=== PATIENT | female | born 1980 | race Caucasian/White ===

== ENCOUNTER → 2016-11-22 | Outpatient (CLI) | payer OTHER ==
--- NOTE | 2016-11-22 17:16 | US ---
EXAMINATION TYPE: US pelvic complete DATE OF EXAM: 11/22/2016 4:53 PM COMPARISON: CT and US CLINICAL HISTORY: N94.9 LT Adnexal Mass, Patient had normal ultrasound on 10-08, she had a CT on 12-21 which showed an adnexal mass measuring 5.2cm. TECHNIQUE: Transabdominal (TA) Date of LMP: 10/27/2016 EXAM MEASUREMENTS: Uterus: 7.8 x 4.1 x 5.3cm Endometrial Stripe: 1.4 cm Right Ovary: 2.1 x 1.5 x 2.0 cm Left Ovary: 2.5 x 1.6 x 1.6 cm TECHNOLOGIST IMPRESSION: wnl 1. Uterus: Anteverted 2. Endometrium: wnl 3. Right Ovary: wnl 4. Left Ovary: wnl 5. Bilateral Adnexa: wnl 6. Posterior cul-de-sac: wnl IMPRESSION: Normal transabdominal pelvic sonogram. Endometrium is upper limit of normal thickness. No adnexal mass seen.
== END | disposition home or self-care (01) ==
LOC: RADUSMAIN 16:36
PROVIDERS: ATTEND Obstetrics & Gynecology
DX: N83.8 Other noninflammatory disorders of ovary, fallopian tube and broad ligament (principal)
CPT/HCPCS: 76856

== ENCOUNTER → 2017-03-15 | Outpatient (CLI) | payer OTHER ==
[2017-03-15 12:19] LABS: Basophils % (A) 1 %; CH 27.8; CHCM 33.2; Eosinophils # (A) 0.1 k/uL (0-0.7); Eosinophils % (A) 2 %; HCT 40.7 % (34.0-46.0); HDW 2.53; HGB 13.3 gm/dL (11.4-16.0); Luc % (Auto) 2; Lymphocytes # (A) 1.6 k/uL (1.0-4.8); Lymphocytes % (A) 33 %; MCH 27.4 pg (25.0-35.0); MCHC 32.6 g/dL (31.0-37.0); Mean Platelet Volume 6.9; Monocytes # (A) 0.3 k/uL (0-1.0); Monocytes % (A) 6 %; Neutrophils # (A) 2.7 k/uL (1.3-7.7); Neutrophils % (A) 57 %; RBC 4.85 m/uL (3.80-5.40); WBC 4.8 k/uL (3.8-10.6); WBC (Perox) 5.06
== END | disposition home or self-care (01) ==
LOC: LABPAT 11:45
PROVIDERS: ATTEND Obstetrics & Gynecology
DX: Z01.812 Encounter for preprocedural laboratory examination (principal)
CPT/HCPCS: 36415; 85025

== ENCOUNTER 2017-03-22 08:32 | Day surgery (SDC) | payer OTHER ==
[2017-03-17 15:07] VITALS: BMI 24.5
--- NOTE | 2017-03-21 15:45 | P.HPOB ---
History of Present Illness H&P Date: 03/21/17 Chief Complaint: Menorrhagia 37 year old presents for D&C hysteroscopy and endometrial ablation with NovaSure. Review of Systems All systems: negative Constitutional: Denies chills, Denies fever Eyes: denies blurred vision, denies pain Ears, nose, mouth and throat: Denies headache, Denies sore throat Cardiovascular: Denies chest pain, Denies shortness of breath Respiratory: Denies cough Gastrointestinal: Denies abdominal pain, Denies diarrhea, Denies nausea, Denies vomiting Genitourinary: Denies dysuria, Denies hematuria Musculoskeletal: Denies myalgias Integumentary: Denies pruritus, Denies rash Neurological: Denies numbness, Denies weakness Psychiatric: Denies anxiety, Denies depression Endocrine: Denies fatigue, Denies weight change Past Medical History Past Medical History: Asthma Additional Past Medical History / Comment(s): IRREGULAR MENSES, MIGRAINES, excercise induced asthma, past hx of htn, bruised rt foot History of Any Multi-Drug Resistant Organisms: None Reported Past Surgical History: Appendectomy, Section, Tubal Ligation Additional Past Surgical History / Comment(s): 3 LAPROSCOPIC SX FOR ovarian cysts, TUBE IN EAR Past Anesthesia/Blood Transfusion Reactions: No Reported Reaction Additional Past Anesthesia/Blood Transfusion Reaction / Comment(s): STATES HAS "PANIC ATTACK IF MASK IS USED" HARD TIME WAKING UP Past Psychological History: Anxiety, Depression Smoking Status: Never smoker Past Alcohol Use History: None Reported Past Drug Use History: None Reported - Past Family History Mother Family Medical History: No Reported History Medications and Allergies Home Medications Medication Instructions Recorded Confirmed Type Albuterol Inhaler [Ventolin Hfa 1 - 2 puff INHALATION Q6HR PRN 03/17/17 History Inhaler] Amitriptyline HCl [Elavil] 25 mg PO HS 03/17/17 03/17/17 History FLUoxetine HCL [PROzac] 40 mg PO QAM 03/17/17 03/17/17 History Ondansetron [Zofran] 4 mg PO Q8HR PRN 03/17/17 03/17/17 History clonazePAM [KlonoPIN] 0.25 mg PO QAM 03/17/17 03/17/17 History clonazePAM [KlonoPIN] 0.5 mg PO HS 03/17/17 03/17/17 History Allergies Allergy/AdvReac Type Severity Reaction Status Date / Time latex AdvReac Rash/Hives Verified 03/17/17 14:56 Exam Osteopathic Statement: *. No significant issues noted on an osteopathic structural exam other than those noted in the History and Physical/Consult. HEart: RRR Lungs: CTAB Abdomen: soft, nontender Extremeties: neg isabella's Assessment and Plan (1) Menorrhagia Status: Acute Plan: 1. D&C hysteroscopy and endometrial ablation with NovaSUre
[~2017-03-22 08:32] MED LIST: DEXAMETHASONE SOD PHOSPHATE 10 MG/ML 1 ML VIAL IV ONE; HYDROmorphone 1 MG/ML 1 ML SYRINGE IVP PRN; LACTATED RINGERS 1,000 ML IV SCH; MIDAZOLAM 2 MG/2 ML VIAL IV PRN; ONDANSETRON 4 MG/2 ML VIAL IVP ONE; Pre Op ABX Message 1 EACH MISC MISCELLANE ONE; SCOPOLAMINE 1.5MG/72HR PATCH TRANSDERM ONE
[2017-03-22 08:54] VITALS: RESP 16
[2017-03-22] MEDS ORDERED: LIDOCAINE 1% INJ 10MG/ML (20 ML MDV) ONE (09:38)
[2017-03-22] MEDS ORDERED: MIDAZOLAM 2 MG/2 ML VIAL ONE (09:38)
[2017-03-22] MEDS ORDERED: fentaNYL (PF) 50 MCG/ML 2 ML AMP ONE (09:38)
[2017-03-22] MEDS ORDERED: KETOROLAC 30 MG/ML 1 ML VIAL ONE (09:38)
[2017-03-22] MEDS ORDERED: PROPOFOL 10 MG/ML 20 ML VIAL IV ONE (09:38)
--- NOTE | 2017-03-22 10:01 | P.OP ---
Date of Procedure: 03/22/17 Preoperative Diagnosis: 1. Menorrhagia Postoperative Diagnosis: 1. Menorrhagia Procedure(s) Performed: D&C hysteroscopy Implants: Anesthesia: MAC Surgeon: Raysa Reyes Estimated Blood Loss (ml): 3 IV fluids (ml): 400 Urine output (ml): 20 Pathology: other (Endometrial curettings) Condition: stable Disposition: PACU Indications for Procedure: Operative Findings: Stenotic inner os of the cervix resulting in uterine perforation, grade 1 uterine descent Description of Procedure: Patient is in the operating room where general anesthesia was obtained without difficulty. She is prepped and draped in normal sterile fashion dorsal lithotomy position and legs placed in candycane stirrups. Bladder was drained of all urine. Weighted speculum placed in vagina the anterior lip the cervix was grasped with single-tooth tenaculum. Uterus was sounded but only went to 4 cm. The cervix was dilated to allow the hysteroscope to pass. Hysteroscopy was performed and was found that it was just to the internal os of the cervix and not always through. Attempting to dilate further caused a perforation of the uterus. This was confirmed with hysteroscope. Sharp curet was gently used to obtain some endocervical, possible endometrial curettings. All instruments were removed from the vagina and the NovaSure was abandoned. Patient tolerated the procedure well, sponge and instrument counts correct 2 and she was taken to recovery room in condition.
[2017-03-22 10:51] VITALS: TEMP 97
[2017-03-22 11:43] VITALS: BP 142/96; PULSE 68
== END 2017-03-22 11:54 | disposition home or self-care (01) ==
LOC: OR 08:32
PROVIDERS: ATTEND Obstetrics & Gynecology
DX: N92.0 Excessive and frequent menstruation with regular cycle (principal); J45.909 Unspecified asthma, uncomplicated; F32.9 Major depressive disorder, single episode, unspecified; Z79.899 Other long term (current) drug therapy; Z91.040 Latex allergy status; F41.9 Anxiety disorder, unspecified
CPT/HCPCS: 81025; 88305; 58558; J2250; J1100; J2405; J2001; J3010; J1885; J1170; J2704

== ENCOUNTER → 2017-04-30 | Outpatient (CLI) | payer OTHER ==
[2017-04-30 11:03] LABS: Basophils % (A) 1 %; CHCM 33.3; Eosinophils # (A) 0.1 k/uL (0-0.7); Eosinophils % (A) 2 %; HDW 2.56; HGB 14.2 gm/dL (11.4-16.0); Luc # (Auto) 0.07; Luc % (Auto) 1; Lymphocytes # (A) 1.6 k/uL (1.0-4.8); Lymphocytes % (A) 30 %; MCH 28.3 pg (25.0-35.0); MCHC 34.8 g/dL (31.0-37.0); MCV 81.3 fL (80.0-100.0); Mean Platelet Volume 7.2; Monocytes # (A) 0.2 k/uL (0-1.0); Monocytes % (A) 4 %; Neutrophils # (A) 3.3 k/uL (1.3-7.7); Neutrophils % (A) 62 %; RBC 5.04 m/uL (3.80-5.40); RDW 12.8 % (11.5-15.5); WBC 5.3 k/uL (3.8-10.6); WBC (Perox) 5.74
[2017-04-30 11:20] LABS: Anion Gap 10 mmol/L; Blood Urea Nitrogen 7 mg/dL (7-17); Calcium 8.8 mg/dL (8.4-10.2); Carbon Dioxide 23 mmol/L (22-30); Chloride 107 mmol/L (98-107); Glucose 110 mg/dL (74-99); Non-African American GFR(MDRD) >60 (>60 ml/min/1.73 sqM); Sodium 140 mmol/L (137-145)
== END ==
LOC: LABPAT 10:45
PROVIDERS: ATTEND Obstetrics & Gynecology
DX: Z01.812 Encounter for preprocedural laboratory examination (principal)
CPT/HCPCS: 80048; 85025

== ENCOUNTER 2017-05-09 06:06 | Observation (INO) | payer OTHER ==
[2017-04-29 17:41] VITALS: BMI 24.5
--- NOTE | 2017-05-08 11:19 | P.HPOB ---
History of Present Illness H&P Date: 05/08/17 Chief Complaint: Menorrhagia 37-year-old presents for total laparoscopic hysterectomy with da Jr due to menorrhagia. Attempted to do an ablation on her but perforated her uterus due to cervical stenosis. Review of Systems All systems: negative Constitutional: Denies chills, Denies fever Eyes: denies blurred vision, denies pain Ears, nose, mouth and throat: Denies headache, Denies sore throat Cardiovascular: Denies chest pain, Denies shortness of breath Respiratory: Denies cough Gastrointestinal: Denies abdominal pain, Denies diarrhea, Denies nausea, Denies vomiting Genitourinary: Denies dysuria, Denies hematuria Musculoskeletal: Denies myalgias Integumentary: Denies pruritus, Denies rash Neurological: Denies numbness, Denies weakness Psychiatric: Denies anxiety, Denies depression Endocrine: Denies fatigue, Denies weight change Past Medical History Past Medical History: Asthma, Hypertension Additional Past Medical History / Comment(s): MIGRAINES, IBS. HEAVY FREQ MENSES , ABD CRAMPING & BLOATING. History of Any Multi-Drug Resistant Organisms: None Reported Past Surgical History: Appendectomy, Section, Tubal Ligation Additional Past Surgical History / Comment(s): LAROSCOPIC Ovarian Cysts REMOVAL. D&C, HYSTEROSCOPY 03/22/17. Past Anesthesia/Blood Transfusion Reactions: Previous Problems w/ Anesthesia Additional Past Anesthesia/Blood Transfusion Reaction / Comment(s): OCC TAKES LONGER TO AWAKEN FROM ANESTHESIA. Past Psychological History: Anxiety Smoking Status: Never smoker Past Alcohol Use History: None Reported Past Drug Use History: None Reported - Past Family History Mother Family Medical History: No Reported History Medications and Allergies Home Medications Medication Instructions Recorded Confirmed Type Albuterol Inhaler [Ventolin Hfa 1 - 2 puff INHALATION Q6HR PRN 03/17/17 History Inhaler] Amitriptyline HCl [Elavil] 25 mg PO HS 03/17/17 04/29/17 History FLUoxetine HCL [PROzac] 40 mg PO QAM 03/17/17 04/29/17 History Ondansetron [Zofran] 4 mg PO Q8HR PRN 03/17/17 04/29/17 History clonazePAM [KlonoPIN] 0.25 mg PO QAM 03/17/17 04/29/17 History clonazePAM [KlonoPIN] 0.5 mg PO HS 03/17/17 04/29/17 History Allergies Allergy/AdvReac Type Severity Reaction Status Date / Time latex AdvReac Rash/Hives Verified 04/29/17 17:16 Exam Osteopathic Statement: *. No significant issues noted on an osteopathic structural exam other than those noted in the History and Physical/Consult. Heart: Regular rate and rhythm Lungs: Clear to auscultation bilaterally Abdomen: Soft, nontender Extremities: Negative Homans sign Assessment and Plan (1) Menorrhagia Status: Acute Plan: 1. Total laparoscopic hysterectomy with da Jr
[~2017-05-09 06:06] MED LIST changes: -HYDROmorphone 1 MG/ML 1 ML SYRINGE IVP PRN; -LACTATED RINGERS 1,000 ML IV SCH; -Pre Op ABX Message 1 EACH MISC MISCELLANE ONE; +ceFAZolin 2 GM in SODIUM CHLORIDE 0.9% 100 ML IVPB ONE
[2017-05-09] MEDS: LACTATED RINGERS 1,000 ML IV SCH ×3 (06:30→22:42)
[2017-05-09] MEDS ORDERED: LIDOCAINE 1% 20 ML VIAL (10MG/ML) FOR IV START SQ ONE (06:31)
[2017-05-09] MEDS ORDERED: ROCURONIUM BROMIDE 10 MG/ML 10 ML VIAL IV ONE (07:15)
[2017-05-09] MEDS ORDERED: PROPOFOL 10 MG/ML 20 ML VIAL IV ONE (07:15)
[2017-05-09] MEDS ORDERED: NEOSTIGMINE 1 MG/ML 10 ML VIAL ONE (07:15)
[2017-05-09] MEDS ORDERED: GLYCOPYRROLATE 0.2 MG/ML 2 ML VIAL ONE (07:15)
[2017-05-09] MEDS ORDERED: MIDAZOLAM 2 MG/2 ML VIAL ONE (07:15)
[2017-05-09] MEDS ORDERED: LIDOCAINE 1% INJ 10MG/ML (20 ML MDV) ONE (07:15)
[2017-05-09] MEDS ORDERED: fentaNYL (PF) 50 MCG/ML 2 ML AMP ONE (07:15)
[2017-05-09] MEDS ORDERED: ePHEDrine 50 MG/ML 1 ML AMP ONE (07:15)
[2017-05-09] MEDS ORDERED: SUCCINYLCHOLINE CHLORIDE 100 MG/5 ML SYR IV ONE (07:15)
[2017-05-09] MEDS ORDERED: BUPIVACAINE (PF) 0.25% 30 ML VIAL SQ ONE (07:39)
--- NOTE | 2017-05-09 08:28 | P.OP ---
Date of Procedure: 05/09/17 Preoperative Diagnosis: 1. Menorrhagia Postoperative Diagnosis: 1. Menorrhagia Procedure(s) Performed: Total laparoscopic hysterectomy with da Jr Implants: Anesthesia: ERNIEA Surgeon: Raysa Reyes Estimated Blood Loss (ml): 10 IV fluids (ml): 400 Urine output (ml): 200 Pathology: other (Uterus and cervix) Condition: stable Disposition: PACU Indications for Procedure: Operative Findings: Normal uterus and ovaries, evidence of history of tubal ligation Description of Procedure: Patient taken the operating room where general anesthesia was obtained without difficulty. She is prepped and draped in normal sterile fashion dorsal lithotomy position, legs placed in the Robinson stirrups. Weighted speculum placed in the vagina and the anterior lip the cervix was grasped with single- tooth tenaculum. The uterus sounded to 8 cm and the cervix diameter was 3 cm. The appropriate manipulator tip and ring were placed on the Olivia manipulator. The Olivia manipulator was then placed in the uterus. Bauer catheter was also placed. Attention was then turned to the abdomen and gloves were changed. A 5 mm supraumbilical incision was made the scalpel and a 5 mm optical trocar was placed under direct visualization. 10 cm to the right of this and 2 cm down a 5 mm incision was made and 8 mm da Jr port was placed under direct visualization. Same measurements on the opposite side of the patient's abdomen , the 5 mm incision was made and 8 mm da Jr port was placed under direct visualization. In the left upper quadrant a 10 mm incision was made and a 10 mm optical trocar was placed under direct visualization. The 5 mm optical trocar was then replaced with the 8 mm da Jr camera port. The robot was docked on patient's right side. The camera was introduced and then the monopolar curved scissor and [place] bipolar placed under direct visualization. I broke scrub and went to the physician console. The left uterosacral ligament was cauterized with the [place] bipolar and cut with monopolar curved scissors. The left round ligament was cauterized with the [place] bipolar and cut with monopolar curved scissors. The posterior leaf of the broad ligament was taken down using the monopolar curved scissors. Anterior leaf of the broad ligament was then taken down using the monopolar curved scissors. The uterine artery was cauterized with the [place] bipolar and cut with monopolar curved scissors. The bladder flap was then started using the monopolar curved scissors. Attention was then turned to the right side of the patient's anatomy and the right uterosacral ligament was cauterized with the [place] bipolar and cut with monopolar curved scissors. The right round ligament was cauterized with the [place] bipolar and cut with monopolar curved scissors. Posterior leaf of the broad ligament was taken down using the monopolar curved scissors and the anterior leaf was taken down using the monopolar curved scissors. The uterine artery was cauterized the Maryland bipolar cut with monopolar curved scissors. The bladder flap was then finished on this side. Anterior colpotomy was made using the monopolar curved scissors. The rest of the uterus was from the vaginal cuff by following the ring around with the monopolar curved scissors through the uterosacral ligaments back to the anterior portion. Once the uterus and cervix were amputated they were pulled through the vaginal cuff. Hemostasis was assured. The instruments were changed for the Cardier forcep and the zach suture cut. The vaginal cuff was then closed using O stratafix barbed suture in a running fashion. Hemostasis was again assured and the pelvis was irrigated. All instruments were removed from the abdomen and the robot was undocked. I scrubbed back in to perform a cystoscopy. There were jets from both ureteral orifices. The abdominal incisions were closed with 4-0 Vicryl in a subcuticular fashion. Patient tolerated the procedure well, sponge and instrument counts correct 2 and she was taken to recovery room in stable condition condition
[2017-05-09] MEDS: HYDROmorphone 1 MG/ML 1 ML SYRINGE IVP PRN ×3 (09:25→09:49)
[2017-05-09] MEDS ORDERED: Acetaminophen-Codeine 300-30mg TAB PO PRN ×2 (10:30)
[2017-05-09] MEDS ORDERED: diphenhydrAMINE 50 MG/ML 1 ML VIAL IVP PRN (10:30)
[2017-05-09] MEDS ORDERED: SIMETHICONE 80 MG CHEWABLE PO PRN (10:30)
[2017-05-09] MEDS ORDERED: ALBUTEROL INHALER 60 PUFF/8 GM INHALER INHALATION PRN (10:30)
[2017-05-09] MEDS ORDERED: METOCLOPRAMIDE 5 MG/ML 2 ML VIAL IVP PRN (10:30)
[2017-05-09] MEDS ORDERED: IBUPROFEN 600 MG TAB PO PRN (10:30)
[2017-05-09] MEDS ORDERED: ONDANSETRON 4 MG/2 ML VIAL IVP PRN (10:30)
[2017-05-09] MEDS: FLUoxetine HCL 20 MG CAP PO SCH (13:29)
[2017-05-09] MEDS: SENNOSIDES-DOCUSATE SODIUM 1 EACH TAB PO SCH ×2 (13:30→21:12)
[2017-05-09] MEDS: KETOROLAC 30 MG/ML 1 ML VIAL IVP PRN ×2 (13:33→19:36)
[2017-05-09] MEDS: clonazePAM 0.5 MG TAB PO SCH (13:35)
[2017-05-09] MEDS ORDERED: ALBUTEROL NEBULIZED 2.5 MG/3 ML INHALATION PRN (15:03)
[2017-05-09] MEDS ORDERED: AMITRIPTYLINE HCL 25 MG TAB PO SCH (21:00)
[2017-05-09] MEDS ORDERED: clonazePAM 0.5 MG TAB PO SCH (21:00)
[2017-05-10 06:52] LABS: Basophils % (A) 0 %; CH 27.1; Eosinophils # (A) 0.3 k/uL (0-0.7); Eosinophils % (A) 3 %; HCT 35.2 % (34.0-46.0); HDW 2.45; HGB 11.8 gm/dL (11.4-16.0); Luc # (Auto) 0.11; Luc % (Auto) 1; Lymphocytes # (A) 1.6 k/uL (1.0-4.8); Lymphocytes % (A) 20 %; MCH 27.7 pg (25.0-35.0); MCHC 33.6 g/dL (31.0-37.0); MCV 82.4 fL (80.0-100.0); Mean Platelet Volume 7.1; Monocytes # (A) 0.5 k/uL (0-1.0); Monocytes % (A) 6 %; Neutrophils # (A) 5.3 k/uL (1.3-7.7); Neutrophils % (A) 69 %; RBC 4.27 m/uL (3.80-5.40); RDW 12.5 % (11.5-15.5); WBC 7.7 k/uL (3.8-10.6)
[2017-05-10 08:17] VITALS: BP 133/80; PULSE 64; RESP 16; TEMP 97.4
--- NOTE | 2017-05-10 08:40 | P.DS ---
Providers Date of admission: 05/10/17 01:06 Expected date of discharge: 05/10/17 Attending physician: Raysa Reyes Primary care physician: Ian Shirley - Discharge Diagnosis(es) (1) Menorrhagia Current Visit: No Status: Resolved (2) History of robot-assisted laparoscopic hysterectomy Current Visit: Yes Status: Acute Hospital Course: Patient presented for TLH with da esa. She underwent this procedure without complications. Her post op course was uncomplicated. Denies N/V, F/C, CP, SOB, calf pain. Tolerating a reg diet and voiding/ambulating without difficulty. She will be discharged home POD #1 in stable condition to follow up with me in 3 weeks. Plan - Discharge Summary New Discharge Prescriptions: New Acetaminophen-Codeine 300-30mg [Tylenol #3] 2 tab PO Q6H PRN #30 tablet PRN Reason: Pain Ibuprofen [Motrin] 600 mg PO Q6HR PRN #30 tab PRN Reason: Mild Pain Or Fever >= 100.5 No Action Albuterol Inhaler [Ventolin Hfa Inhaler] 1 - 2 puff INHALATION RT-Q6H PRN PRN Reason: Shortness Of Breath clonazePAM [KlonoPIN] 0.25 mg PO QAM Ondansetron [Zofran] 4 mg PO Q8HR PRN PRN Reason: Nausea Amitriptyline HCl [Elavil] 25 mg PO HS FLUoxetine HCL [PROzac] 40 mg PO QAM clonazePAM [KlonoPIN] 0.5 mg PO HS Ibuprofen [Motrin] 600 mg PO Q6HR PRN #30 tab PRN Reason: Mild Pain Or Fever >= 100.5 Discharge Medication List Albuterol Inhaler [Ventolin Hfa Inhaler] 1 - 2 puff INHALATION RT-Q6H PRN [History] Amitriptyline HCl [Elavil] 25 mg PO HS 03/17/17 [History] FLUoxetine HCL [PROzac] 40 mg PO QAM 03/17/17 [History] Ondansetron [Zofran] 4 mg PO Q8HR PRN 03/17/17 [History] clonazePAM [KlonoPIN] 0.25 mg PO QAM 03/17/17 [History] clonazePAM [KlonoPIN] 0.5 mg PO HS 03/17/17 [History] Ibuprofen [Motrin] 600 mg PO Q6HR PRN #30 tab 03/22/17 [Rx] Acetaminophen-Codeine 300-30mg [Tylenol #3] 2 tab PO Q6H PRN #30 tablet [Rx] Ibuprofen [Motrin] 600 mg PO Q6HR PRN #30 tab 05/10/17 [Rx] Follow up Appointment(s)/Referral(s): Raysa Reyes DO [Doctor of Osteopathic Medicine] - 3 Weeks Discharge Disposition: HOME SELF-CARE
[2017-05-10] MEDS: SENNOSIDES-DOCUSATE SODIUM 1 EACH TAB PO SCH (09:02)
[2017-05-10] MEDS: clonazePAM 0.5 MG TAB PO SCH (09:06)
[2017-05-10] MEDS: FLUoxetine HCL 20 MG CAP PO SCH (09:06)
== END 2017-05-10 10:15 | disposition home or self-care (01) ==
LOC: OR 06:06 → 6PED 08:58 → OR 05-10 01:06 → 6PED 05-10 01:06
PROVIDERS: ADMIT Obstetrics & Gynecology; ATTEND Obstetrics & Gynecology
DX: N92.0 Excessive and frequent menstruation with regular cycle (principal); N88.2 Stricture and stenosis of cervix uteri; J45.909 Unspecified asthma, uncomplicated; I10 Essential (primary) hypertension; K58.9 Irritable bowel syndrome, unspecified; G43.909 Migraine, unspecified, not intractable, without status migrainosus; F41.9 Anxiety disorder, unspecified; Z79.899 Other long term (current) drug therapy; Z91.040 Latex allergy status
CPT/HCPCS: 81025; 85025; 86850; 86900; 86901; 88307

== ENCOUNTER 2017-05-27 17:17 | Emergency (ER) | payer OTHER ==
[2017-05-27 17:30] VITALS: TEMP 98.7
[2017-05-27] MEDS ORDERED: HYDROmorphone 1 MG/ML 1 ML SYRINGE IVP STA (17:44)
[2017-05-27] MEDS ORDERED: ONDANSETRON 4 MG/2 ML VIAL IVP STA (17:44)
[2017-05-27] MEDS ORDERED: SODIUM CHLORIDE 0.9% 1,000 ML IV STA (17:44)
[2017-05-27 18:11] LABS: Basophils # (A) 0.1 k/uL (0-0.2); Basophils % (A) 1 %; CHCM 34.4; Eosinophils # (A) 0.5 k/uL (0-0.7); Eosinophils % (A) 6 %; HCT 38.5 % (34.0-46.0); HDW 2.58; HGB 12.7 gm/dL (11.4-16.0); Luc # (Auto) 0.12; Luc % (Auto) 2; Lymphocytes # (A) 2.1 k/uL (1.0-4.8); Lymphocytes % (A) 29 %; MCH 27.1 pg (25.0-35.0); MCV 81.9 fL (80.0-100.0); Mean Platelet Volume 7.6; Monocytes # (A) 0.5 k/uL (0-1.0); Monocytes % (A) 6 %; Neutrophils % (A) 56 %; RDW 13.7 % (11.5-15.5); WBC 7.1 k/uL (3.8-10.6); WBC (Perox) 7.49
[2017-05-27 18:14] LABS: Appearance,Urine Cloudy (Clear); Bacteria,Urine Rare /hpf; Bilirubin,Urine Negative (Negative); Glucose,Urine (UA) Negative (Negative); Ketones,Urine Negative (Negative); Leukocyte Esterase,Urine Moderate (Negative); Mucus,Urine Occasional /hpf; Nitrite,Urine Negative (Negative); PH, Urine 6.5 (5.0-8.0); Particle Count 9364; Protein,Urine 1+ (Negative); RBC,Urine 3 /hpf (0-5); Specific Gravity,Urine 1.025 (1.001-1.035); Squamous Epithelial Cell,Urine 13 /hpf (0-4); UA Billing (MACRO vs. MICRO) MICRO; Urobilinogen,Urine <2.0 mg/dL (<2.0); WBC,Urine 11 /hpf (0-5)
[2017-05-27 18:22] LABS: ALT 22 U/L (9-52); AST 16 U/L (14-36); Alkaline Phosphatase 63 U/L (38-126); Amylase 38 U/L (30-110); Anion Gap 10 mmol/L; Blood Urea Nitrogen 12 mg/dL (7-17); Calcium 8.5 mg/dL (8.4-10.2); Carbon Dioxide 24 mmol/L (22-30); Chloride 104 mmol/L (98-107); Glucose 85 mg/dL (74-99); Non-African American GFR(MDRD) >60 (>60 ml/min/1.73 sqM); Potassium 4.1 mmol/L (3.5-5.1); Sodium 138 mmol/L (137-145); Total Bilirubin 0.2 mg/dL (0.2-1.3); Total Protein 6.9 g/dL (6.3-8.2)
--- NOTE | 2017-05-27 18:31 | XR ---
EXAMINATION TYPE: XR KUB DATE OF EXAM: 05/27/2017 COMPARISON: 09/06/2014 HISTORY: Abdominal pain TECHNIQUE: 2 views FINDINGS: Bowel gas pattern is normal. There is no sign of intestinal obstruction or pneumoperitoneum . Fecal pattern is normal. There are no pathologic calcifications. Lung bases are clear. IMPRESSION: Nonacute abdomen. No change.
--- NOTE | 2017-05-27 19:14 | ED ---
General Adult HPI - General Chief complaint: Recheck/Abnormal Lab/Rx Stated complaint: Low Grade Fever, Nausea Time Seen by Provider: 05/27/17 17:39 Source: patient, RN notes reviewed, old records reviewed Mode of arrival: ambulatory Limitations: no limitations - History of Present Illness Initial comments: Patient 37-year-old female who presents emergency room status post hysterectomy 2 and half weeks, with chief complaint of increasing follow urine. She does admit that over the last week she's noticed that urine seems to have a foul smell. patient does admit that she has had some lower abdominal pain. She states she has followed up with her PSYCHOLOGICAL OPERATIONS SPECIALIST. She states that a urinalysis was performed. She states she's not on any antibiotics. she admits to a brown reddish drainage vaginal. She states she discussed this with PSYCHOLOGICAL OPERATIONS SPECIALIST who told her that was normal after the surgery.She denies any other complaints. Patient denies any recent fever, chills, shortness of breath, chest pain, back pain, nausea or vomiting, numbness or tingling, dysuria or hematuria, constipation or diarrhea, headaches or visual changes, or any other complaints. - Related Data Home Medications Medication Instructions Recorded Confirmed Albuterol Inhaler [Ventolin Hfa 1 - 2 puff INHALATION RT-Q6H PRN 03/17/17 Inhaler] Amitriptyline HCl [Elavil] 25 mg PO HS 03/17/17 05/10/17 FLUoxetine HCL [PROzac] 40 mg PO QAM 03/17/17 05/10/17 Ondansetron [Zofran] 4 mg PO Q8HR PRN 03/17/17 05/10/17 clonazePAM [KlonoPIN] 0.25 mg PO QAM 03/17/17 05/10/17 clonazePAM [KlonoPIN] 0.5 mg PO HS 03/17/17 05/10/17 Previous Rx's Medication Instructions Recorded Ibuprofen [Motrin] 600 mg PO Q6HR PRN #30 tab 03/22/17 Acetaminophen-Codeine 300-30mg 2 tab PO Q6H PRN #30 tablet 05/10/17 [Tylenol #3] Ibuprofen [Motrin] 600 mg PO Q6HR PRN #30 tab 05/10/17 Sulfamethox-Tmp 800-160Mg [Bactrim 1 tab PO Q12HR #14 tab 05/27/17 DS 800-160 mg] Allergies Allergy/AdvReac Type Severity Reaction Status Date / Time latex AdvReac Rash/Hives Verified 05/09/17 10:32 Review of Systems ROS Statement: Those systems with pertinent positive or pertinent negative responses have been documented in the HPI. ROS Other: All systems not noted in ROS Statement are negative. Past Medical History Past Medical History: Asthma Additional Past Medical History / Comment(s): MIGRAINES, IBS. HEAVY FREQ MENSES , ABD CRAMPING & BLOATING. History of Any Multi-Drug Resistant Organisms: None Reported Past Surgical History: Appendectomy, Section, Tubal Ligation Additional Past Surgical History / Comment(s): LAROSCOPIC Ovarian Cysts REMOVAL. D&C, HYSTEROSCOPY 03/22/17. Past Anesthesia/Blood Transfusion Reactions: Previous Problems w/ Anesthesia Additional Past Anesthesia/Blood Transfusion Reaction / Comment(s): OCC TAKES LONGER TO AWAKEN FROM ANESTHESIA. Past Psychological History: Anxiety, Panic Disorder Smoking Status: Never smoker Past Alcohol Use History: None Reported Past Drug Use History: None Reported - Past Family History Mother Family Medical History: No Reported History General Exam - General Exam Comments Initial Comments: General: The patient is awake and alert, in no distress, and does not appear acutely ill. Eye: Pupils are equal, round and reactive to light, extra-ocular movements are intact. No nystagmus. There is normal conjunctiva bilaterally. No signs of icterus. Ears, nose, mouth and throat: There are moist mucous membranes and no oral lesions. Neck: The neck is supple, there is no tenderness or JVD. Cardiovascular: There is a regular rate and rhythm. No murmur, rub or gallop is appreciated. Respiratory: Lungs are clear to auscultation, respirations are non-labored, breath sounds are equal. No wheezes, stridor, rales, or rhonchi. Gastrointestinal: Soft, non-distended, non-tender abdomen without masses or organomegaly noted. There is no rebound or guarding present. No CVA tenderness. Bowel sounds are unremarkable. Musculoskeletal: Normal ROM, no tenderness. Strength 5/5. Sensation intact. Pulses equal bilaterally 2+. Neurological: A&O x 3. CN II-XII intact, There are no obvious motor or sensory deficits. Coordination appears grossly intact. Speech is normal. Skin: Skin is warm and dry and no rashes or lesions are noted. Psychiatric: Cooperative, appropriate mood & affect, normal judgment. Limitations: no limitations Course Vital Signs 05/27/17 17:25 Temperature 98.7 F Pulse Rate 76 Respiratory 20 Rate Blood Pressure 137/92 O2 Sat by Pulse 98 Oximetry Medical Decision Making - Medical Decision Making Case discussed in detail with attending physician Dr. Meza. patient reexamined at this time shows no signs of distress. She was comfortably in the stretcher. Her labs been reviewed. Does show evidence for possible UTI. Culture is pending. Pelvic exam performed unremarkable. Cultures are currently pending as well. Patient's x-rays negative. Patient has no elevated white count. Negative lactic acid. No fever and non-tachycardic come vitals. She is resting comfortably. Abdomen soft nontender. Patient will be laced on antibiotics cover for a UTI and advised follow-up with the PSYCHOLOGICAL OPERATIONS SPECIALIST in the next 1- 2 days. Advised return if any symptoms increase worsen or for any other concerns. Patient states understanding and is in agreement. - Lab Data Result diagrams: 05/27/17 18:00 05/27/17 18:00 Lab Results 05/27/17 05/27/17 05/27/17 Range/Units 18:00 18:00 18:00 WBC 7.1 (3.8-10.6) k/uL RBC 4.70 (3.80-5.40) m/uL Hgb 12.7 (11.4-16.0) gm/dL Hct 38.5 (34.0-46.0) % MCV 81.9 (80.0-100.0) fL MCH 27.1 (25.0-35.0) pg MCHC 33.0 (31.0-37.0) g/dL RDW 13.7 (11.5-15.5) % Plt Count 278 (150-450) k/uL Neutrophils % 56 % Lymphocytes % 29 % Monocytes % 6 % Eosinophils % 6 % Basophils % 1 % Neutrophils # 4.0 (1.3-7.7) k/uL Lymphocytes # 2.1 (1.0-4.8) k/uL Monocytes # 0.5 (0-1.0) k/uL Eosinophils # 0.5 (0-0.7) k/uL Basophils # 0.1 (0-0.2) k/uL Sodium 138 (137-145) mmol/L Potassium 4.1 (3.5-5.1) mmol/L Chloride 104 (98-107) mmol/L Carbon Dioxide 24 (22-30) mmol/L Anion Gap 10 mmol/L BUN 12 (7-17) mg/dL Creatinine 0.81 (0.52-1.04) mg/dL Est GFR (MDRD) Af Amer >60 (>60 ml/min/1.73 sqM) Est GFR (MDRD) Non-Af >60 (>60 ml/min/1.73 sqM) Glucose 85 (74-99) mg/dL Plasma Lactic Acid Hardy 0.7 (0.7-2.0) mmol/L Calcium 8.5 (8.4-10.2) mg/dL Total Bilirubin 0.2 (0.2-1.3) mg/dL AST 16 (14-36) U/L ALT 22 (9-52) U/L Alkaline Phosphatase 63 (38-126) U/L Total Protein 6.9 (6.3-8.2) g/dL Albumin 4.0 (3.5-5.0) g/dL Amylase 38 (30-110) U/L Lipase 209 (23-300) U/L Urine Color Urine Appearance (Clear) Urine pH (5.0-8.0) Ur Specific Capay (1.001-1.035) Urine Protein (Negative) Urine Glucose (UA) (Negative) Urine Ketones (Negative) Urine Blood (Negative) Urine Nitrite (Negative) Urine Bilirubin (Negative) Urine Urobilinogen (<2.0) mg/dL Ur Leukocyte Esterase (Negative) Urine RBC (0-5) /hpf Urine WBC (0-5) /hpf Ur Squamous Epith Cells (0-4) /hpf Urine Bacteria (None) /hpf Urine Mucus (None) /hpf 05/27/17 Range/Units 18:00 WBC (3.8-10.6) k/uL RBC (3.80-5.40) m/uL Hgb (11.4-16.0) gm/dL Hct (34.0-46.0) % MCV (80.0-100.0) fL MCH (25.0-35.0) pg MCHC (31.0-37.0) g/dL RDW (11.5-15.5) % Plt Count (150-450) k/uL Neutrophils % % Lymphocytes % % Monocytes % % Eosinophils % % Basophils % % Neutrophils # (1.3-7.7) k/uL Lymphocytes # (1.0-4.8) k/uL Monocytes # (0-1.0) k/uL Eosinophils # (0-0.7) k/uL Basophils # (0-0.2) k/uL Sodium (137-145) mmol/L Potassium (3.5-5.1) mmol/L Chloride (98-107) mmol/L Carbon Dioxide (22-30) mmol/L Anion Gap mmol/L BUN (7-17) mg/dL Creatinine (0.52-1.04) mg/dL Est GFR (MDRD) Af Amer (>60 ml/min/1.73 sqM) Est GFR (MDRD) Non-Af (>60 ml/min/1.73 sqM) Glucose (74-99) mg/dL Plasma Lactic Acid Hardy (0.7-2.0) mmol/L Calcium (8.4-10.2) mg/dL Total Bilirubin (0.2-1.3) mg/dL AST (14-36) U/L ALT (9-52) U/L Alkaline Phosphatase (38-126) U/L Total Protein (6.3-8.2) g/dL Albumin (3.5-5.0) g/dL Amylase (30-110) U/L Lipase (23-300) U/L Urine Color Yellow Urine Appearance Cloudy H (Clear) Urine pH 6.5 (5.0-8.0) Ur Specific [place]ay 1.025 (1.001-1.035) Urine Protein 1+ H (Negative) Urine Glucose (UA) Negative (Negative) Urine Ketones Negative (Negative) Urine Blood Moderate H (Negative) Urine Nitrite Negative (Negative) Urine Bilirubin Negative (Negative) Urine Urobilinogen <2.0 (<2.0) mg/dL Ur Leukocyte Esterase Moderate H (Negative) Urine RBC 3 (0-5) /hpf Urine WBC 11 H (0-5) /hpf Ur Squamous Epith Cells 13 H (0-4) /hpf Urine Bacteria Rare H (None) /hpf Urine Mucus Occasional H (None) /hpf Disposition Clinical Impression: UTI (urinary tract infection), Postoperative abdominal pain Disposition: HOME SELF-CARE Condition: Good Instructions: Urinary Tract Infection in Women (ED) Additional Instructions: Please use medication as discussed. Please follow-up with PSYCHOLOGICAL OPERATIONS SPECIALIST/family doctor in the next 2 days of symptoms have not improved. Please return to emergency room if the symptoms increase or worsen or for any other concerns. Prescriptions: Sulfamethox-Tmp 800-160Mg [Bactrim DS 800-160 mg] 1 tab PO Q12HR #14 tab Referrals: Ian Shirley MD [Primary Care Provider] - 1-2 days Raysa Reyes DO [Doctor of Osteopathic Medicine] - 1-2 days Time of Disposition: 19:13
[2017-05-27 19:22] VITALS: BP 158/92; PULSE 68; RESP 18
== END 2017-05-27 19:26 | disposition home or self-care (01) ==
LOC: EC 17:17
DX: N39.0 Urinary tract infection, site not specified (principal); R10.9 Unspecified abdominal pain; G89.18 Other acute postprocedural pain; F41.9 Anxiety disorder, unspecified; Z79.899 Other long term (current) drug therapy; Z91.040 Latex allergy status
CPT/HCPCS: 36415; 80053; 87591; 87491; 82150; 83605; 83690; 85025; 81001; 87808; 87070; 87086; 74000; 99284; 96374; 96375; 96361; J2405; J1170; 87205

== ENCOUNTER 2017-07-02 04:19 | Observation (INO) | payer OTHER ==
[2017-07-02] MEDS ORDERED: NALOXONE 0.4 MG/ML 1 ML VIAL IV PRN (05:12)
--- NOTE | 2017-07-02 05:12 | ED ---
Abdominal Pain HPI - General Stated Complaint: Female Source: patient, EMS Mode of arrival: EMS Limitations: no limitations - History of Present Illness Initial Comments: This patient is a 37-year-old woman transferred here from [facility]. The patient states that she had gone there related to pain to the left labial area as well as swelling that has been going on there. The patient states that she had a hysterectomy performed early in April at this hospital by Dr. Reyes. She states that since that time she has had some intermittent problems with labial swelling. She states that she had been having difficulty with constipation all day, including straining at having a bowel movement. This evening she developed labial pain and swelling so she went to the other hospital. While she was there physician who saw her was concerned about possibility of infection or abscess and performed a CT scanned and started IV antibiotics. He also had the patient transferred here to be seen by her surgeon if possible. The patient states that she is feeling approximately the same as when she went to the other hospital. MD Complaint: abdominal pain -: days(s) Location: suprapubic Radiation: none Migration to: no migration Severity: moderate Quality: cramping, aching Consistency: constant Improves With: nothing Worsens With: nothing Context: recent surgery/procedure Associated Symptoms: constipation - Related Data Home Medications Medication Instructions Recorded Confirmed Amitriptyline HCl [Elavil] 25 mg PO HS 03/17/17 07/02/17 FLUoxetine HCL [PROzac] 40 mg PO QAM 03/17/17 07/02/17 clonazePAM [KlonoPIN] 0.5 mg PO BID 03/17/17 07/02/17 Allergies Allergy/AdvReac Type Severity Reaction Status Date / Time gluten AdvReac Abdominal Verified 07/02/17 04:26 Pain latex AdvReac Rash/Hives Verified 05/09/17 10:32 Review of Systems ROS Statement: Those systems with pertinent positive or pertinent negative responses have been documented in the HPI. ROS Other: All systems not noted in ROS Statement are negative. Constitutional: Denies: fever, chills, weakness Respiratory: Denies: cough, dyspnea Cardiovascular: Denies: chest pain, palpitations, syncope Gastrointestinal: Reports: as per HPI, abdominal pain, constipation. Denies: nausea, vomiting, diarrhea, melena, hematochezia Genitourinary: Reports: discharge (Whitish). Denies: dysuria, hematuria Musculoskeletal: Denies: back pain Skin: Denies: rash Neurological: Denies: headache, weakness, numbness Past Medical History Past Medical History: Asthma, Hypertension Additional Past Medical History / Comment(s): MIGRAINES, IBS. HEAVY FREQ MENSES , ABD CRAMPING & BLOATING. History of Any Multi-Drug Resistant Organisms: None Reported Past Surgical History: Appendectomy, Section, Tubal Ligation Additional Past Surgical History / Comment(s): LAROSCOPIC Ovarian Cysts REMOVAL. D&C, HYSTEROSCOPY 03/22/17. Past Anesthesia/Blood Transfusion Reactions: Previous Problems w/ Anesthesia Additional Past Anesthesia/Blood Transfusion Reaction / Comment(s): OCC TAKES LONGER TO AWAKEN FROM ANESTHESIA. Past Psychological History: Anxiety, Depression, Panic Disorder Smoking Status: Never smoker Past Alcohol Use History: None Reported Past Drug Use History: None Reported - Past Family History Mother Family Medical History: No Reported History General Exam Limitations: no limitations General appearance: alert, in no apparent distress Head exam: Present: atraumatic, normocephalic Eye exam: Present: normal appearance Respiratory exam: Present: normal lung sounds bilaterally. Absent: respiratory distress, wheezes, rales, rhonchi, stridor Cardiovascular Exam: Present: regular rate, normal rhythm, normal heart sounds. Absent: systolic murmur, diastolic murmur, rubs, gallop GI/Abdominal exam: Present: soft. Absent: tenderness, guarding, rebound, mass, pulsatile mass, hernia Extremities exam: Present: normal inspection, normal capillary refill. Absent: pedal edema, calf tenderness Back exam: Present: normal inspection. Absent: CVA tenderness (R), CVA tenderness (L) Neurological exam: Present: alert Skin exam: Present: warm, dry, intact, normal color. Absent: rash Course Vital Signs 07/02/17 07/02/17 04:28 05:03 Temperature 97.5 F L Pulse Rate 79 70 Respiratory 18 16 Rate Blood Pressure 160/81 145/87 O2 Sat by Pulse 98 96 Oximetry Medical Decision Making - Medical Decision Making Patient is a 37-year-old woman transferred from outside hospital to have reevaluation by her surgeon Dr. Reyes. I have reviewed the computed tomography scan from the other facility and given the concern about possible proctitis will have additional consultation. Disposition Clinical Impression: History of robot-assisted laparoscopic hysterectomy, Abdominal pain Disposition: ADMITTED IP TO THIS [facility] Condition: Good Referrals: Ian Shirley MD [Primary Care Provider] - 1-2 days
[2017-07-02 06:11] VITALS: BMI 25.4
[2017-07-02 08:41] LABS: Basophils % (A) 0 %; CH 27.1; CHCM 33.5; Eosinophils # (A) 0.1 k/uL (0-0.7); Eosinophils % (A) 1 %; HCT 37.2 % (34.0-46.0); HDW 2.59; HGB 12.7 gm/dL (11.4-16.0); Luc # (Auto) 0.13; Luc % (Auto) 1; Lymphocytes # (A) 1.4 k/uL (1.0-4.8); Lymphocytes % (A) 15 %; MCH 27.7 pg (25.0-35.0); MCHC 34.1 g/dL (31.0-37.0); MCV 81.3 fL (80.0-100.0); Mean Platelet Volume 7.2; Monocytes # (A) 0.5 k/uL (0-1.0); Monocytes % (A) 5 %; Neutrophils # (A) 7.3 k/uL (1.3-7.7); Neutrophils % (A) 77 %; RBC 4.58 m/uL (3.80-5.40); RDW 12.9 % (11.5-15.5); WBC 9.4 k/uL (3.8-10.6); WBC (Perox) 10.13
[2017-07-02 09:11] LABS: Anion Gap 6 mmol/L; Blood Urea Nitrogen 8 mg/dL (7-17); Calcium 8.2 mg/dL (8.4-10.2); Carbon Dioxide 26 mmol/L (22-30); Chloride 107 mmol/L (98-107); Glucose 86 mg/dL (74-99); Non-African American GFR(MDRD) >60 (>60 ml/min/1.73 sqM); Potassium 3.9 mmol/L (3.5-5.1); Sodium 139 mmol/L (137-145)
[2017-07-02] MEDS: ACETAMINOPHEN TAB 325 MG TAB PO PRN ×2 (09:39→21:34)
[2017-07-02] MEDS: FLUoxetine HCL 20 MG CAP PO SCH (09:39)
[2017-07-02] MEDS: MAGNESIUM HYDROXIDE 2,400 MG/10 ML CUP PO PRN (09:39)
[2017-07-02] MEDS: DOCUSATE 100 MG CAP PO SCH ×3 (10:01→21:32)
[2017-07-02] MEDS: clonazePAM 0.5 MG TAB PO SCH ×2 (10:02→21:30)
--- NOTE | 2017-07-02 12:49 | P.GSHP ---
History of Present Illness H&P Date: 07/02/17 Chief Complaint: Abdominal pain and constipation This 37-year-old female who recently had a hysterectomy and comes in complaining of increasing abdominal pain and perineal swelling and constipation. She was seen at an outside hospital and had a CT performed which showed proctitis and a large stool ball. She states she's been having difficulty passing bowel movements for some time since the surgery. She denies any stool being passed from her vagina. She denies any fevers or chills. She denies nausea vomiting. She has no other complaints at this time. - Review of Systems All systems: negative Past Medical History Past Medical History: Asthma, Hypertension Additional Past Medical History / Comment(s): MIGRAINES, IBS. HEAVY FREQ MENSES , ABD CRAMPING & BLOATING. History of Any Multi-Drug Resistant Organisms: None Reported Past Surgical History: Appendectomy, Section, Tubal Ligation Additional Past Surgical History / Comment(s): LAROSCOPIC Ovarian Cysts REMOVAL. D&C, HYSTEROSCOPY 03/22/17. Past Anesthesia/Blood Transfusion Reactions: Previous Problems w/ Anesthesia Additional Past Anesthesia/Blood Transfusion Reaction / Comment(s): OCC TAKES LONGER TO AWAKEN FROM ANESTHESIA. Past Psychological History: Anxiety, Depression, Panic Disorder Smoking Status: Never smoker Past Alcohol Use History: None Reported Past Drug Use History: None Reported - Past Family History Mother Family Medical History: No Reported History Medications and Allergies Home Medications Medication Instructions Recorded Confirmed Type Amitriptyline HCl [Elavil] 25 mg PO HS 03/17/17 07/02/17 History FLUoxetine HCL [PROzac] 40 mg PO QAM 03/17/17 07/02/17 History clonazePAM [KlonoPIN] 0.5 mg PO BID 03/17/17 07/02/17 History Ondansetron [Zofran ODT] 8 mg PO Q8HR PRN 07/02/17 07/02/17 History Allergies Allergy/AdvReac Type Severity Reaction Status Date / Time latex Allergy Rash/Hives Verified 07/02/17 11:47 gluten AdvReac Abdominal Verified 07/02/17 11:47 Pain Surgical - Exam Osteopathic Statement: *. No significant issues noted on an osteopathic structural exam other than those noted in the History and Physical/Consult. Vital Signs Temp Pulse Resp BP Pulse Ox 97.5 F L 79 18 160/81 98 07/02/17 04:28 07/02/17 04:28 07/02/17 04:28 07/02/17 04:28 07/02/17 04:28 - General well developed, well nourished - Eyes PERRL, normal ocular movement - Respiratory normal expansion, normal respiratory effort - Cardiovascular Rhythm: regular - Abdomen No rigidity no rebound Abdomen: soft, non tender - Genitourinary Vulvar edema and erythema mild perineal tenderness no palpable fluctuance or fluid collection. - Rectum No hemorrhoids no perirectal abscess seen digital rectal exam deferred per patient - Psychiatric oriented to time, oriented to person, oriented to place Results - Labs 07/02/17 08:24 07/02/17 08:24 Abnormal Lab Results - Last 24 Hours (Table) 07/02/17 Range/Units 08:24 Calcium 8.2 L (8.4-10.2) mg/dL Diabetes panel 07/02/17 Range/Units 08:24 Sodium 139 (137-145) mmol/L Potassium 3.9 (3.5-5.1) mmol/L Chloride 107 (98-107) mmol/L Carbon Dioxide 26 (22-30) mmol/L BUN 8 (7-17) mg/dL Creatinine 0.73 (0.52-1.04) mg/dL Glucose 86 (74-99) mg/dL Calcium 8.2 L (8.4-10.2) mg/dL Calcium panel 07/02/17 Range/Units 08:24 Calcium 8.2 L (8.4-10.2) mg/dL Pituitary panel 07/02/17 Range/Units 08:24 Sodium 139 (137-145) mmol/L Potassium 3.9 (3.5-5.1) mmol/L Chloride 107 (98-107) mmol/L Carbon Dioxide 26 (22-30) mmol/L BUN 8 (7-17) mg/dL Creatinine 0.73 (0.52-1.04) mg/dL Glucose 86 (74-99) mg/dL Calcium 8.2 L (8.4-10.2) mg/dL Adrenal panel 07/02/17 Range/Units 08:24 Sodium 139 (137-145) mmol/L Potassium 3.9 (3.5-5.1) mmol/L Chloride 107 (98-107) mmol/L Carbon Dioxide 26 (22-30) mmol/L BUN 8 (7-17) mg/dL Creatinine 0.73 (0.52-1.04) mg/dL Glucose 86 (74-99) mg/dL Calcium 8.2 L (8.4-10.2) mg/dL - Imaging CT scan - abdomen: report reviewed, image reviewed CT scan - pelvis: report reviewed, image reviewed Assessment and Plan (1) Abdominal pain Status: Acute (2) History of robot-assisted laparoscopic hysterectomy Status: Acute Plan: On CT the patient has a large stool ball sitting above her coccyx in her rectal vault. There is a marked amount of edema and inflammation indicating of proctitis. The cause of this is unknown at this time however is likely contributing to her constipation. Recommend Rocephin and Flagyl along with aggressive bowel regimen. Deferring enemas at this time secondary to concern of surrounding inflammation.
[2017-07-02] MEDS: SODIUM CHLORIDE 0.9% 1,000 ML IV SCH (13:55)
[2017-07-02] MEDS: metroNIDAZOLE-NS PMX 500 MG in SALINE 1 100ML.BAG IVPB SCH ×2 (14:44→21:37)
--- NOTE | 2017-07-02 16:37 | P.HPIM ---
History of Present Illness H&P Date: 07/02/17 Chief Complaint: Vulva area swelling History presented upon: This is a 37-year-old patient of Dr. Lopez. Patient had a hysterectomy carried out on 05/10/2017. Since then she's been having some bloating in the lower abdomen and some swelling in the vulvar area. She has been down to see her alberene stone setter about 2 times. She continues to have swelling in the vulvar area. She is also some drainage apparently from the vaginal area. Denies any obvious fever. But pain is swelling of the present. Appetite is okay. Patient was transferred down from the [facility]. GEN.: Tired EYES: None HEENT: None NECK: None RESPIRATORY: None CARDIOVASCULAR: None GASTROINTESTINAL: None GENITOURINARY: As above MUSCULOSKELETAL: None LYMPHATICS: None HEMATOLOGICAL: None PSYCHIATRY: None NEUROLOGICAL: None Past medical history: Hypertension, migraines, irritable bowel syndrome, anxiety depression Past surgical history: Appendectomy, , tubal ligation, hysterectomy, Home medications: Reviewed in the electronic records ALLERGIES: Latex consulted VITAL SIGNS: 97.5, 79, 18, 160/81, 98% room air GENERAL: Average built, laying in bed comfortable. EYES: Pupils equal. Conjunctiva normal. HEENT: External appearance of nose and ears normal, oral cavity grossly normal. NECK: JVD not raised; masses not palpable. HEART: First and second heart sounds are normal; no edema. LUNGS: Respiratory rate normal; clear to auscultation. ABDOMEN: Soft, nontender, liver spleen not palpable, no masses palpable. LYMPHATICS: No lymph nodes palpable in the axilla and neck. PSYCH: [Alert and oriented x3; mood and affect some anxiety. NEUROLOGICAL: Cranial nerves grossly intact; no facial asymmetry, power and sensation grossly intact. GENITOURINARY: Patient examined in the presence of nurse brick sorter. No internal exam was done. The left vulvar area and adjoining area it is somewhat tender. Investigations: White count 9.4, hemoglobin 12.7, potassium 3.9 Computed tomography scan from [facility] shows large ball of stool and possible proctitis. Assessment: -Proctitis on computed tomography scan. Given the tenderness in the vulvar area I'm concerned that there is a deeper abscess. We will add surgical specialty address that. -Anxiety depression otherwise specified -Essential hypertension Plan: Dr. Reyes from [facility] was consulted. Surgery was consulted. Patient's IV ceftriaxone and IV Flagyl. Home medications are resumed. Care was discussed with the patient. Past Medical History Past Medical History: Asthma, Hypertension Additional Past Medical History / Comment(s): MIGRAINES, IBS. HEAVY FREQ MENSES , ABD CRAMPING & BLOATING. History of Any Multi-Drug Resistant Organisms: None Reported Past Surgical History: Appendectomy, Section, Tubal Ligation Additional Past Surgical History / Comment(s): LAROSCOPIC Ovarian Cysts REMOVAL. D&C, HYSTEROSCOPY 03/22/17. Past Anesthesia/Blood Transfusion Reactions: Previous Problems w/ Anesthesia Additional Past Anesthesia/Blood Transfusion Reaction / Comment(s): OCC TAKES LONGER TO AWAKEN FROM ANESTHESIA. Past Psychological History: Anxiety, Depression, Panic Disorder Smoking Status: Never smoker Past Alcohol Use History: None Reported Past Drug Use History: None Reported - Past Family History Mother Family Medical History: No Reported History Medications and Allergies Home Medications Medication Instructions Recorded Confirmed Type Amitriptyline HCl [Elavil] 25 mg PO HS 03/17/17 07/02/17 History FLUoxetine HCL [PROzac] 40 mg PO QAM 03/17/17 07/02/17 History clonazePAM [KlonoPIN] 0.5 mg PO BID 03/17/17 07/02/17 History Ondansetron [Zofran ODT] 8 mg PO Q8HR PRN 07/02/17 07/02/17 History Allergies Allergy/AdvReac Type Severity Reaction Status Date / Time latex Allergy Rash/Hives Verified 07/02/17 11:47 gluten AdvReac Abdominal Verified 07/02/17 11:47 Pain Results CBC & Chem 7: 07/02/17 08:24 07/02/17 08:24
[2017-07-02] MEDS ORDERED: AMITRIPTYLINE HCL 25 MG TAB PO SCH (21:00)
[2017-07-02 23:15] VITALS: RESP 16
[2017-07-03] MEDS: metroNIDAZOLE-NS PMX 500 MG in SALINE 1 100ML.BAG IVPB SCH ×2 (06:25→13:36)
[2017-07-03] MEDS: SODIUM CHLORIDE 0.9% 1,000 ML IV SCH (06:25)
[2017-07-03 08:04] LABS: Basophils % (A) 1 %; CH 26.7; CHCM 32.4; Eosinophils # (A) 0.3 k/uL (0-0.7); Eosinophils % (A) 5 %; HCT 37.2 % (34.0-46.0); HDW 2.53; HGB 12.2 gm/dL (11.4-16.0); Luc # (Auto) 0.11; Luc % (Auto) 2; Lymphocytes # (A) 1.6 k/uL (1.0-4.8); Lymphocytes % (A) 29 %; MCH 27.1 pg (25.0-35.0); MCHC 32.7 g/dL (31.0-37.0); MCV 82.8 fL (80.0-100.0); Monocytes # (A) 0.3 k/uL (0-1.0); Monocytes % (A) 5 %; Neutrophils # (A) 3.3 k/uL (1.3-7.7); Neutrophils % (A) 59 %; RBC 4.49 m/uL (3.80-5.40); RDW 12.8 % (11.5-15.5); WBC 5.7 k/uL (3.8-10.6); WBC (Perox) 6.09
[2017-07-03] MEDS: ACETAMINOPHEN TAB 325 MG TAB PO PRN ×2 (08:05→13:32)
[2017-07-03] MEDS: FLUoxetine HCL 20 MG CAP PO SCH (08:05)
[2017-07-03] MEDS: DOCUSATE 100 MG CAP PO SCH (08:06)
[2017-07-03] MEDS: clonazePAM 0.5 MG TAB PO SCH (08:06)
[2017-07-03] MEDS: MAGNESIUM HYDROXIDE 2,400 MG/10 ML CUP PO PRN (08:15)
[2017-07-03 08:38] LABS: Anion Gap 7 mmol/L; Blood Urea Nitrogen 6 mg/dL (7-17); Calcium 8.2 mg/dL (8.4-10.2); Carbon Dioxide 25 mmol/L (22-30); Chloride 109 mmol/L (98-107); Glucose 80 mg/dL (74-99); Non-African American GFR(MDRD) >60 (>60 ml/min/1.73 sqM); Potassium 4.4 mmol/L (3.5-5.1); Sodium 141 mmol/L (137-145)
[2017-07-03] MEDS ORDERED: BISACODYL 10 MG SUPP RECTAL SCH (09:00)
--- NOTE | 2017-07-03 12:44 | P.PN ---
Subjective Principal diagnosis: Proctitis and constipation Patient passed several bowel movements yesterday with a bowel regimen. There stated one of them had some substance together was liquid. She denies any nausea vomiting. Denies any fevers or chills. Still complains of mild abdominal pain however she states it's been improved. No other complaints at this time. Objective - Vital Signs Vital signs: Vital Signs Temp 98.7 F 07/03/17 07:00 Pulse 79 07/03/17 08:00 Resp 16 07/03/17 08:00 BP 163/85 07/03/17 07:00 Pulse Ox 98 07/03/17 07:00 Intake & Output 07/02/17 07/03/17 07/03/17 18:59 06:59 18:59 Intake Total 875 1974 Balance 875 1974 Weight 61.235 kg Intake: Intake, IV Titration 1974 Amount Sodium Chloride 0.9% 1, 875 1875 000 ml @ 125 mls/hr IV . Q8H [facility] Rx#:[id number] metroNIDAZOLE-NS PMX 500 100 mg In Saline 1 100ml.bag @ 100 mls/hr IVPB Q8H [facility] Rx#:[id number] Other: Voiding Method Toilet Toilet Toilet # Voids 2 2 # Bowel Movements 2 - Constitutional General appearance: Present: average body habitus, cooperative - EENT Eyes: Present: PERRLA - Cardiovascular Rhythm: regular - Gastrointestinal Gastrointestinal Comment(s): Soft nontender nondistended - Psychiatric Psychiatric: Present: A&O x's 3 - Labs CBC & Chem 7: 07/03/17 07:18 07/03/17 07:18 Labs: Abnormal Lab Results - Last 24 Hours (Table) 07/03/17 Range/Units 07:18 Chloride 109 H (98-107) mmol/L BUN 6 L (7-17) mg/dL Calcium 8.2 L (8.4-10.2) mg/dL Assessment and Plan (1) Abdominal pain Status: Acute (2) History of robot-assisted laparoscopic hysterectomy Status: Acute Plan: Constipation seems to be improving. Continue Rocephin and Flagyl secondary to significant inflammation in the rectum. We'll continue bowel regimen for now some concern that she may still have a stool ball with liquid stool leaking around it. Patient would likely benefit from enema to help break up solid stool however I would recommend waiting until some of the inflammation in her rectum subsides.
[2017-07-03] MEDS ORDERED: ONDANSETRON 4 MG/2 ML VIAL IVP PRN (13:46)
[2017-07-03 16:15] VITALS: BP 142/83; PULSE 75; TEMP 98.3
--- NOTE | 2017-07-03 18:58 | P.DS ---
Providers Date of admission: 07/03/17 08:29 Expected date of discharge: 07/03/17 Attending physician: Avinash Lay Consults: 07/02/17 05:13 Consult Physician Routine Consulting Provider: Raysa Reyes Consult Reason/Comments: Patient known to you. Do you want consulting provider notified?: Yes 07/02/17 05:14 Consult Physician Routine Consulting Provider: Max Kunz Consult Reason/Comments: abdominal pain Do you want consulting provider notified?: Yes Primary care physician: [facility] Course: Final diagnoses: -Possible Proctitis -Anxiety depression otherwise specified -Essential hypertension Hospital course: This is a patient had a hysterectomy on 05/10/2017, Dr. Reyes. Since then she' s had some bloating and some in the abdomen swelling the vulvar area. She came down to see Dr. Reyes 2 times for that. She is having some drainage from that area and was transferred here from [facility]. Patient is put on IV Zosyn and Flagyl she feeling much better. Today she is starting a diet lunch and breakfast. Had a bowel movement. She is much better in the pelvic area. Patient seen by Dr. kunz from general surgery. Dr. Reyes was consulted from [facility]. The nurse got information from our today that she will see the patient as an outpatient patient is well-known to her and just doesn't the patient follow- up in the office. Patient afebrile, normal white count. He did go home. On examination: Abdomen soft nontender, lungs are clear Patient Condition at Discharge: Good Plan - Discharge Summary New Discharge Prescriptions: New Bisacodyl [Dulcolax] 10 mg RECTAL DAILY suppositor Docusate [Colace] 100 mg PO BID cap metroNIDAZOLE [Flagyl] 500 mg PO Q8H #21 tab Sulfamethox-Tmp 800-160Mg [Bactrim DS 800-160 mg] 1 tab PO Q12HR #14 tab Continue Amitriptyline HCl [Elavil] 25 mg PO HS FLUoxetine HCL [PROzac] 40 mg PO QAM clonazePAM [KlonoPIN] 0.5 mg PO BID Ondansetron [Zofran ODT] 8 mg PO Q8HR PRN PRN Reason: Nausea And Vomiting Discharge Medication List Amitriptyline HCl [Elavil] 25 mg PO HS 03/17/17 [History] FLUoxetine HCL [PROzac] 40 mg PO QAM 03/17/17 [History] clonazePAM [KlonoPIN] 0.5 mg PO BID 03/17/17 [History] Ondansetron [Zofran ODT] 8 mg PO Q8HR PRN 07/02/17 [History] Bisacodyl [Dulcolax] 10 mg RECTAL DAILY suppositor 07/03/17 [Rx] Docusate [Colace] 100 mg PO BID cap 07/03/17 [Rx] Sulfamethox-Tmp 800-160Mg [Bactrim DS 800-160 mg] 1 tab PO Q12HR #14 tab [Rx] metroNIDAZOLE [Flagyl] 500 mg PO Q8H #21 tab 07/03/17 [Rx] Follow up Appointment(s)/Referral(s): Max Kunz DO [Doctor of Osteopathic Medicine] - 1 Week Raysa Reyes DO [Doctor of Osteopathic Medicine] - 3 Days Ian Shirley MD [Primary Care Provider] - 1-2 days Patient Instructions/Handouts: Constipation (DC), Proctitis (DC), Acute Abdominal Pain (DC) Discharge Disposition: HOME SELF-CARE
[2017-07-03] MEDS ORDERED: metroNIDAZOLE 500 MG TAB PO SCH (22:00)
== END 2017-07-03 17:31 | disposition home or self-care (01) ==
LOC: EC 04:19 → 5MS5E 05:16 → INTOOBSV 07-03 08:29 → OBSVTOIN 07-03 08:29
PROVIDERS: ADMIT Hospitalist; ATTEND Hospitalist
DX: R19.00 Intra-abdominal and pelvic swelling, mass and lump, unspecified site (principal); R10.9 Unspecified abdominal pain; K59.00 Constipation, unspecified; Z79.899 Other long term (current) drug therapy; Z91.040 Latex allergy status; Z91.018 Allergy to other foods; I10 Essential (primary) hypertension; F32.9 Major depressive disorder, single episode, unspecified; F41.0 Panic disorder [episodic paroxysmal anxiety]; K58.9 Irritable bowel syndrome, unspecified; G43.909 Migraine, unspecified, not intractable, without status migrainosus; Z90.710 Acquired absence of both cervix and uterus
CPT/HCPCS: 96365; 96366 ×2; 96367; 96375; 99285; 80048 ×2; 85025 ×2; G0378 ×3; J2405; J0696 ×2

== ENCOUNTER → 2018-10-16 | Outpatient (CLI) | payer OTHER ==
--- NOTE | 2018-10-16 08:32 | US ---
EXAMINATION TYPE: US abdomen complete DATE OF EXAM: 10/16/2018 COMPARISON: None CLINICAL HISTORY: 38-year-old female R10.9 abdominal pain. TECHNIQUE: Multiple sonographic images of the abdomen are obtained. FINDINGS: EXAM MEASUREMENTS: Liver Length: 13.8 cm Gallbladder Wall: 0.2 cm CBD: 0.3 cm Spleen: 10.8 cm Right Kidney: 10.0 x 3.5 x 5.5 cm Left Kidney: 9.8 x 4.4 x 4.4 cm Pancreas: small portion of head and tail obscured by bowel gas visualized portions appear within nor mal limits. Liver: wnl Gallbladder: wnl Evidence for sonographic Laura's sign: no CBD: wnl Spleen: wnl Right Kidney: No hydronephrosis. Left Kidney: Inferior pole obscured by bowel gas. No hydronephrosis. Upper IVC: wnl Abd Aorta: wnl IMPRESSION: Unremarkable sonographic examination of the abdomen.
== END | disposition home or self-care (01) ==
LOC: RADUSWWP 07:08
PROVIDERS: ATTEND Internal Medicine
DX: R10.9 Unspecified abdominal pain (principal)
CPT/HCPCS: 76700

== ENCOUNTER → 2019-02-27 | Outpatient (CLI) | payer OTHER | END | disposition home or self-care (01) | LOC: CPPFTMAIN 10:21 | PROVIDERS: ATTEND Internal Medicine | DX: J44.9 Chronic obstructive pulmonary disease, unspecified (principal) | CPT/HCPCS: 94060; 94726; 94729 ==

== ENCOUNTER 2019-05-18 11:47 | Emergency (ER) | payer OTHER ==
[2019-05-18 11:52] VITALS: RESP 18
[2019-05-18] MEDS ORDERED: KETOROLAC 30 MG/ML 1 ML VIAL IVP STA (12:53)
[2019-05-18] MEDS ORDERED: diphenhydrAMINE 50 MG/ML 1 ML VIAL IVP STA (12:53)
[2019-05-18] MEDS ORDERED: SODIUM CHLORIDE 0.9% 1,000 ML IV STA (12:53)
[2019-05-18] MEDS ORDERED: METOCLOPRAMIDE 5 MG/ML 2 ML VIAL IVP STA (12:53)
[2019-05-18] MEDS ORDERED: ORPHENADRINE 30 MG/ML 2 ML VIAL IVP STA (12:54)
--- NOTE | 2019-05-18 12:56 | ED ---
Headache HPI - General Chief Complaint: Headache Stated Complaint: Headache Time Seen by Provider: 05/18/19 12:40 Source: RN notes reviewed, old records reviewed Mode of arrival: ambulatory Limitations: no limitations - History of Present Illness Initial Comments: Patient is a 39-year-old female history of migraine-like headache. She presents emergency department today with 4 days of headache, nausea. She states that she's tried multiple medications for migraines but has not helped at this time. She states that it feels like her typical migraine. She denies any fevers or chills. She does report some mild epigastric discomfort seemed to be associated with nausea. - Related Data Home Medications Medication Instructions Recorded Confirmed FLUoxetine HCL [PROzac] 40 mg PO QAM 03/17/17 08/22/17 clonazePAM [KlonoPIN] 0.5 mg PO BID 03/17/17 08/22/17 Dicyclomine [Bentyl] 10 mg PO HS 08/22/17 08/22/17 Allergies Allergy/AdvReac Type Severity Reaction Status Date / Time latex Allergy Rash/Hives Verified 05/18/19 11:49 gluten AdvReac Abdominal Verified 05/18/19 11:49 Pain Review of Systems ROS Statement: Those systems with pertinent positive or pertinent negative responses have been documented in the HPI. ROS Other: All systems not noted in ROS Statement are negative. Past Medical History Past Medical History: Asthma, GERD/Reflux, Hypertension Additional Past Medical History / Comment(s): MIGRAINES, IBS, ABD CRAMPING & BLOATING, N/V @times, decreased appetite, no longer needs BP med. History of Any Multi-Drug Resistant Organisms: None Reported Past Surgical History: Appendectomy, Section, Hysterectomy, Tubal Ligation Additional Past Surgical History / Comment(s): LAPAROSCOPY, D&C Past Anesthesia/Blood Transfusion Reactions: Previous Problems w/ Anesthesia Additional Past Anesthesia/Blood Transfusion Reaction / Comment(s): OCC TAKES LONGER TO AWAKEN FROM ANESTHESIA. Past Psychological History: Anxiety, Depression, Panic Disorder Smoking Status: Never smoker Past Alcohol Use History: None Reported Past Drug Use History: None Reported - Past Family History Mother Family Medical History: No Reported History General Exam - General Exam Comments Initial Comments: Alert and ready 39-year-old female. No distress. General: Well appearing, well nourished, in no distress. Oriented x 3, normal mood and affect . Ambulating without difficulty. Skin: Good turgor, no rash, unusual bruising or prominent lesions Hair: Normal texture and distribution. HEENT: Head: Normocephalic, atraumatic, no visible or palpable masses, depressions, or scaring. Eyes: Visual acuity intact, conjunctiva clear, sclera non-icteric, EOM intact, PERRL. Ears: EACs clear, TMs translucent & cone of light visualized. hearing intact. Nose: No external lesions, mucosa non-inflamed, septum and turbinates normal Mouth: Mucous membranes moist, no mucosal lesions. Teeth/Gums: No obvious caries or periodontal disease. No gingival inflammation or significant resorption. Pharynx: Mucosa non-inflamed, no tonsillar hypertrophy or exudate Neck: Supple, without lesions, bruits, or adenopathy, thyroid non-enlarged and non-tender Heart: No cardiomegaly or thrills; regular rate and rhythm, no murmur or gallop Lungs: Clear to auscultation and percussion Abdomen: Bowel sounds normal, no tenderness, organomegaly, masses, or hernia Back: Spine normal without deformity or tenderness, no CVA tenderness Extremities: No amputations or deformities, cyanosis, edema or varicosities, peripheral pulses intact Musculoskeletal: Normal gait and station. No misalignment, asymmetry, crepitation, defects, tenderness, masses, effusions, decreased range of motion, instability, atrophy or abnormal strength or tone in the head, neck, spine, ribs, pelvis or extremities. Neurologic: CN 2-12 normal. Sensation to pain, touch, and proprioception normal. Finger-nose intact. Patient has no sign of neurological deficits. Psychiatric: Oriented X3, intact recent and remote memory, judgment and insight, normal mood and affect. Limitations: no limitations Course Vital Signs 05/18/19 11:49 Temperature 97.9 F Pulse Rate 78 Respiratory 18 Rate Blood Pressure 155/89 O2 Sat by Pulse 98 Oximetry Medical Decision Making - Medical Decision Making 39-year-old female presents 4 days of migraine-like headache. Strain also medications with no significant relief. The same Patient has no neurological deficits. She does report some nausea and some epigastric discomfort. Patient was given IV fluids labwork obtained. Lab work shows normal chemistry and CBC. Urinalysis did show some hematuria. Discussed that this is the time needing further workup by her primary care doctor. Repeat UA in a few days. Patient agrees to this. I discussed that she does feel better after receiving her medications. All questions were answered return parameters were discussed. - Lab Data Result diagrams: 05/18/19 13:25 05/18/19 13:25 Lab Results 05/18/19 05/18/19 05/18/19 Range/Units 13:25 13:25 13:25 WBC 7.0 (3.8-10.6) k/uL RBC 5.11 (3.80-5.40) m/uL Hgb 13.6 (11.4-16.0) gm/dL Hct 41.7 (34.0-46.0) % MCV 81.5 (80.0-100.0) fL MCH 26.6 (25.0-35.0) pg MCHC 32.7 (31.0-37.0) g/dL RDW 15.2 (11.5-15.5) % Plt Count 286 (150-450) k/uL Neutrophils % 61 % Lymphocytes % 29 % Monocytes % 4 % Eosinophils % 3 % Basophils % 0 % Neutrophils # 4.3 (1.3-7.7) k/uL Lymphocytes # 2.1 (1.0-4.8) k/uL Monocytes # 0.3 (0-1.0) k/uL Eosinophils # 0.2 (0-0.7) k/uL Basophils # 0.0 (0-0.2) k/uL Sodium 141 (137-145) mmol/L Potassium 3.3 L (3.5-5.1) mmol/L Chloride 107 (98-107) mmol/L Carbon Dioxide 25 (22-30) mmol/L Anion Gap 9 mmol/L BUN 7 (7-17) mg/dL Creatinine 0.65 (0.52-1.04) mg/dL Est GFR (CKD-EPI)AfAm >90 (>60 ml/min/1.73 sqM) Est GFR (CKD-EPI)NonAf >90 (>60 ml/min/1.73 sqM) Glucose 83 (74-99) mg/dL Calcium 8.8 (8.4-10.2) mg/dL Total Bilirubin 0.4 (0.2-1.3) mg/dL AST 17 (14-36) U/L ALT 8 L (9-52) U/L Alkaline Phosphatase 55 (38-126) U/L Total Protein 7.7 (6.3-8.2) g/dL Albumin 4.6 (3.5-5.0) g/dL Urine Color Yellow Urine Appearance Cloudy H (Clear) Urine pH 7.0 (5.0-8.0) Ur Specific [place] 1.025 (1.001-1.035) Urine Protein Trace H (Negative) Urine Glucose (UA) Negative (Negative) Urine Ketones Negative (Negative) Urine Blood Negative (Negative) Urine Nitrite Negative (Negative) Urine Bilirubin Negative (Negative) Urine Urobilinogen <2.0 (<2.0) mg/dL Ur Leukocyte Esterase Negative (Negative) Urine RBC 13 H (0-5) /hpf Urine WBC 2 (0-5) /hpf Ur Squamous Epith Cells 8 H (0-4) /hpf Urine Mucus Many H (None) /hpf Disposition Clinical Impression: Migraine, Hematuria Disposition: HOME SELF-CARE Condition: Good Instructions (If sedation given, give patient instructions): Acute Headache (ED) Additional Instructions: Patient has close follow-up with your primary care physician. Recommended repeating urine sample for hematuria. Return to emergency department if any alarming signs or symptoms occur. Is patient prescribed a controlled substance at d/c from ED?: No Referrals: Ian Shirley MD [Primary Care Provider] - 1-2 days Time of Disposition: 14:08
[2019-05-18 13:40] LABS: Basophils % (A) 0 %; Eosinophils # (A) 0.2 k/uL (0-0.7); Eosinophils % (A) 3 %; HCT 41.7 % (34.0-46.0); HGB 13.6 gm/dL (11.4-16.0); Lymphocytes # (A) 2.1 k/uL (1.0-4.8); Lymphocytes % (A) 29 %; MCH 26.6 pg (25.0-35.0); MCHC 32.7 g/dL (31.0-37.0); MCV 81.5 fL (80.0-100.0); Mean Platelet Volume 7.4; Monocytes # (A) 0.3 k/uL (0-1.0); Monocytes % (A) 4 %; Neutrophils # (A) 4.3 k/uL (1.3-7.7); Neutrophils % (A) 61 %; Platelet Count 286 k/uL (150-450); RBC 5.11 m/uL (3.80-5.40); RDW 15.2 % (11.5-15.5)
[2019-05-18 13:48] LABS: Appearance,Urine Cloudy (Clear); Bilirubin,Urine Negative (Negative); Blood,Urine Negative (Negative); Color,Urine Yellow; Glucose,Urine (UA) Negative (Negative); Ketones,Urine Negative (Negative); Leukocyte Esterase,Urine Negative (Negative); Mucus,Urine Many /hpf; Nitrite,Urine Negative (Negative); Protein,Urine Trace (Negative); RBC,Urine 13 /hpf (0-5); Specific Gravity,Urine 1.025 (1.001-1.035); Squamous Epithelial Cell,Urine 8 /hpf (0-4); Urobilinogen,Urine <2.0 mg/dL (<2.0); WBC,Urine 2 /hpf (0-5)
[2019-05-18 13:57] LABS: ALT 8 U/L (9-52); AST 17 U/L (14-36); African American GFR (CKD) >90 (>60 ml/min/1.73 sqM); Albumin 4.6 g/dL (3.5-5.0); Alkaline Phosphatase 55 U/L (38-126); Anion Gap 9 mmol/L; Blood Urea Nitrogen 7 mg/dL (7-17); Calcium 8.8 mg/dL (8.4-10.2); Carbon Dioxide 25 mmol/L (22-30); Chloride 107 mmol/L (98-107); Glucose 83 mg/dL (74-99); Potassium 3.3 mmol/L (3.5-5.1); Sodium 141 mmol/L (137-145); Total Bilirubin 0.4 mg/dL (0.2-1.3); Total Protein 7.7 g/dL (6.3-8.2)
[2019-05-18 14:33] VITALS: BP 162/98; PULSE 72; TEMP 97.4
== END 2019-05-18 14:31 | disposition home or self-care (01) ==
LOC: EC 11:47
DX: G43.909 Migraine, unspecified, not intractable, without status migrainosus (principal); R31.9 Hematuria, unspecified; R10.13 Epigastric pain; R11.0 Nausea; F32.9 Major depressive disorder, single episode, unspecified; F41.0 Panic disorder [episodic paroxysmal anxiety]; K21.9 Gastro-esophageal reflux disease without esophagitis; Z79.899 Other long term (current) drug therapy; Z91.040 Latex allergy status; Z91.018 Allergy to other foods; Z90.49 Acquired absence of other specified parts of digestive tract
CPT/HCPCS: 36415; 80053; 85025; 81001; 99284; 96374; 96375 ×3; 96361; J1200; J2360; J2765; J1885

== ENCOUNTER → 2020-07-02 | Outpatient (CLI) | payer OTHER ==
--- NOTE | 2020-07-02 09:28 | US ---
EXAMINATION TYPE: US thyroid st tissue head/neck DATE OF EXAM: 07/02/2020 COMPARISON: NONE CLINICAL HISTORY: E04.1 thyroid nodule. GLAND SIZE: Right Lobe: 5.2 x 3.4 x 2.8 cm Overall Parenchyma: homogenous Left Lobe: 3.5 x 1.3 x 1.2 cm Overall Parenchyma: homogeneous Isthmus Thickness: 0.2 cm NODULES RIGHT: # of nodules measured on right: 1. 3.9 x 3.1 x 2.9 cm isoechoic mixed nodule at the mid pole with well-defined margins. This nodule is taller than wide and shows intranodular vascularity. No prior LEFT: # of nodules measured on left: 0 ISTHMUS: # of nodules measured in the isthmus: 0 Bilateral neck scanned, no evidence of lymphadenopathy. IMPRESSION: Nonspecific mixed nodule right thyroid lobe.
== END | disposition home or self-care (01) ==
LOC: RADUSWWP 08:52
PROVIDERS: ATTEND Internal Medicine
DX: E04.1 Nontoxic single thyroid nodule (principal)
CPT/HCPCS: 76536

== ENCOUNTER → 2020-08-15 | Outpatient (CLI) | payer OTHER ==
--- NOTE | 2020-08-15 12:58 | CT ---
EXAMINATION TYPE: CT soft tissue neck wo/w con DATE OF EXAM: 08/15/2020 11:13 AM COMPARISON: Thyroid ultrasound 07/02/2020. HISTORY: thyroid nodule, cyst CT DLP: 572.2 mGycm Automated exposure control for dose reduction was used. CONTRAST: CT scan of the neck is performed following without and with IV Contrast, patient injected with 100 mL of Isovue 300. Axial images are obtained, coronal and sagittal reformatted images are reviewed. FINDINGS: There is a 3.5 x 2.5 x 3.8 cm mixed solid cystic right thyroid nodule, with soft tissue mural compone nt which enhances more than adjacent thyroid parenchyma. There is minimal mass effect on the adjacent trachea with no airway narrowing. No evidence of lymphadenopathy. Semitubular and parotid glands are unremarkable. Vascular structures are patent. Lung apices are clear. No aggressive osseous destructi ve lesions. There is asymmetric appearance of the globes which is incompletely visualized. IMPRESSION: 1. 3.8 cm right thyroid mixed solid cystic nodule, with enhancing soft tissue mural component. Findin gs are suspicious for malignancy. Recommend biopsy. 2. No cervical lymphadenopathy. 3. Asymmetric appearance of the globes likely with focal enlargement, which is incompletely visualize d on this exam. Recommend ophthalmology consultation for additional workup.
--- NOTE | 2020-08-15 14:08 | FL ---
Esophagram INDICATION: Thyroid nodule, dysphasia FINDINGS: Fluoroscopy time: 22 seconds. Images obtained: 93. Double air contrast technique is utilized. The esophagus dilates normal caliber has normal contour to the gastroesophageal junction. Gastroesophageal junction opens to normal caliber. No intraluminal or extramural defects are evident. A few tertiary contractions are evident within the distal esophagus during the examination. There is slight hesitancy emptying the distal esophagus. IMPRESSIONS: 1. Mild presbyesophagus. 2. No obstruction
== END | disposition home or self-care (01) ==
LOC: RADCTMAIN 10:32
PROVIDERS: ATTEND Otolaryngology Plastic Surgery within the Head & Neck
DX: E04.1 Nontoxic single thyroid nodule (principal); K22.8 Other specified diseases of esophagus
CPT/HCPCS: 74220; 70492; Q9967

== ENCOUNTER → 2020-11-07 | Outpatient (CLI) | payer OTHER | END | disposition home or self-care (01) | LOC: LABWHC1 12:14 | PROVIDERS: ATTEND Internal Medicine | DX: Z09 Encounter for follow-up examination after completed treatment for conditions other than malignant neoplasm (principal); Z90.09 Acquired absence of other part of head and neck | CPT/HCPCS: 36415; 84439; 84443; 84481 ==

== ENCOUNTER → 2023-02-09 | Outpatient (CLI) | payer OTHER ==
--- NOTE | 2023-02-10 08:41 | US ---
EXAMINATION TYPE: US thyroid st tissue head/neck DATE OF EXAM: 02/09/2023 COMPARISON: CLINICAL HISTORY: M54.2 CERVICALGIA. Right thyroid removed. Patient states having a right neck swell ing that comes and goes. GLAND SIZE: Right Lobe: Surgically absent Left Lobe: 3.7 x 1.4 x 1.2 cm Overall Parenchyma: homogeneous Isthmus Thickness: 0.2 cm NODULES LEFT: # of nodules measured on left: 0 ISTHMUS: # of nodules measured in the isthmus: 0 Bilateral neck scanned. Lymph node visualized by right submandibular gland with short axis measureme nt = 0.7 cm. Right submandibular gland scanned with no abnormality visualized. IMPRESSION: 1. Abnormal postsurgical thyroid. No suspicious nodules.
== END | disposition home or self-care (01) ==
LOC: RADUSWWP 15:52
PROVIDERS: ATTEND Family Medicine
DX: E89.0 Postprocedural hypothyroidism (principal); M54.2 Cervicalgia
CPT/HCPCS: 76536

== ENCOUNTER → 2023-02-22 | Outpatient (CLI) | payer OTHER ==
--- NOTE | 2023-02-22 10:44 | MM ---
Reason for Exam: Clinical finding. Last mammogram was performed 8 year(s) and 3 month(s) ago. Patient History: Menarche at age 11. First Full-Term at age 18. Hysterectomy at age 34. 12/16/2014, Benign Core Biopsy on the left side. 12/16/2014, Benign Core Biopsy on the left side. Risk Values: Shelby 5 year model risk: 1.8%. NCI Lifetime model risk: 13.6%. Prior Study Comparison: 11/28/2014 Bilateral Screening Mammogram, [facility]. 12/10/2014 Left Diagnostic Mammogram, [facility]. 12/10/2014 Left Diagnostic Ultrasound, [facility]. Tissue Density: The breast tissue is heterogeneously dense. This may lower the sensitivity of mammography. Findings: Analyzed By CAD. No suspicious calcifications seen. No evidence for mass or distortion. Microclip marker from prior biopsies left breast. Overall Assessment: Benign, BI-RAD 2 Management: Screening Mammogram of both breasts in 1 year. A clinical breast exam by your physician is recommended on an annual basis and results should be correlated with mammographic findings. This exam should not preclude additional follow-up of suspicious palpable abnormalities. Results were given to the patient verbally at the time of exam. Electronically signed and approved by: Bill Meeks M.D. Radiologis
== END | disposition home or self-care (01) ==
LOC: RADMAMWWP 10:09
PROVIDERS: ATTEND Family Medicine
DX: N60.11 Diffuse cystic mastopathy of right breast (principal)
CPT/HCPCS: 77066; G0279; 77062

== ENCOUNTER → 2025-04-26 | Outpatient (CLI) | payer MEDICAID ==
--- NOTE | 2025-04-26 18:38 | US ---
EXAMINATION TYPE: US abdomen complete DATE OF EXAM: 04/26/2025 COMPARISON: 10/16/2018 CLINICAL INDICATION: Female, 45 years old with history of R10.11 AB PAIN; Generalized ABD pain and bl oating post prandial TECHNIQUE: Grayscale and color Doppler imaging of the abdomen was performed. FINDINGS: EXAM MEASUREMENTS: Liver Length: 15.9 cm Gallbladder Wall: 0.1 cm CBD: 0.2 cm, color Doppler imaging was utilized to isolate the common bile duct for measurement. Spleen: 9.8 cm Right Kidney: 9.7 x 3.5 x 4.4 cm Left Kidney: 10.4 x 3.7 x 4.1 cm Pancreas: wnl Liver: wnl, no dilated ducts, masses or cysts. Gallbladder: wnl Evidence for sonographic Laura's sign: No CBD: wnl Spleen: wnl Right Kidney: wnl, No hydronephrosis, calculi or masses seen Left Kidney: wnl, No hydronephrosis, calculi or masses seen Upper IVC: wnl Abd Aorta: wnl IMPRESSION: Unremarkable sonographic examination of the abdomen. [facility], Workstation: [email or web address], 04/26/2025 6:35 PM
== END | disposition home or self-care (01) ==
LOC: RADUSWWP 07:39
PROVIDERS: ATTEND Family Medicine
DX: R10.11 Right upper quadrant pain (principal)
CPT/HCPCS: 76700